=== PATIENT | male | born 1950 | race Caucasian/White ===

== ENCOUNTER 2018-11-02 09:23 | Emergency (ER) | payer MEDICARE, OTHER ==
[~2018-11-02] VITALS: Ht 165.1 cm; Wt 68.2 kg
[2018-11-02] MEDS ORDERED: NITROGLYCERIN 2% 1 GM OINT PKT TD STA (09:25)
[2018-11-02] MEDS ORDERED: ASPIRIN 81 MG TAB PO STA (09:25)
[2018-11-02 09:26] VITALS: Ht 165.1 cm; Wt 68.2 kg
[2018-11-02] MEDS ORDERED: NITROGLYCERIN (SL) 0.4 MG TAB SL PRN ×2 (09:30→11:30)
[2018-11-02] MEDS ORDERED: GLIP5TAB13 PO (10:11)
[2018-11-02] MEDS ORDERED: ASPI81TA52 PO (10:12)
[2018-11-02] MEDS ORDERED: CARV3.1260 PO (10:12)
[2018-11-02] MEDS ORDERED: LISI2.5T59 PO (10:12)
[2018-11-02] MEDS ORDERED: ATOR20TA38 PO (10:12)
[2018-11-02] MEDS ORDERED: APIX5TAB PO (10:13)
[2018-11-02] MEDS ORDERED: METF100010 PO (10:13)
[2018-11-02 11:27] VITALS: BP 114/72; PULSE 79; RESP 16
[2018-11-02] MEDS ORDERED: DOCUSATE SODIUM 100 MG CAP PO SCH (11:30)
[2018-11-02] MEDS ORDERED: morphine 2 MG INJ IV PRN (11:30)
[2018-11-02] MEDS ORDERED: ONDANSETRON 4 MG INJ IV PRN ×2 (11:30)
[2018-11-02] MEDS ORDERED: ACETAMINOPHEN 325 MG TAB PO PRN ×2 (11:30)
[2018-11-02] MEDS ORDERED: LORAZEPAM 0.5 MG TAB PO PRN (11:30)
[2018-11-02] MEDS ORDERED: GLUCOSE GEL 15 GRAM TUBE PO PRN ×2 (12:00)
[2018-11-02] MEDS ORDERED: DEXTROSE 50% 50 ML SYRINGE IV PRN ×2 (12:00)
[2018-11-02] MEDS ORDERED: GLUCOSE GEL 15 GRAM TUBE BUCCAL PRN (12:00)
[2018-11-02] MEDS ORDERED: INSULIN ASPART [NOVOLOG] 3 ML PEN SC SCH ×2 (12:00)
[2018-11-02] MEDS ORDERED: GLUCAGON 1 MG INJ IM PRN (12:00)
--- NOTE | 2018-11-02 12:07 | ERD ---
ER Documentation Chief Complaint Chief Complaint SUDDEN ONSET SOB. BIB R39 HPI Patient is a 67-year-old male with coronary disease and diabetes who presents with shortness of breath. The patient was brought in by ambulance. The patient had sudden onset of shortness of breath. He was pale and could not speak because of shortness of breath. He is on CPAP with albuterol by paramedics. He denies chest pain. He had a cough recently but no fevers. Upon review of old medical records this is the patient's first visit to the emergency department. He does have a primary doctor. ROS All systems reviewed and are negative except as per history of present illness. Medications Home Meds Reported Medications Apixaban* (Eliquis*) 5 Mg Tablet, 5 MG PO BID, TAB 11/02/18 Metformin Hcl* (Metformin Hcl*) 1,000 Mg Tablet, 1000 MG PO WITH BREAKFAST DINNE, #60 TAB 11/02/18 Atorvastatin Calcium* (Atorvastatin Calcium*) 20 Mg Tablet, 20 MG PO QHS, #30 TAB 11/02/18 Carvedilol* (Carvedilol*) 3.125 Mg Tablet, 3.125 MG PO BID, #60 TAB 11/02/18 Lisinopril* (Lisinopril*) 2.5 Mg Tablet, 2.5 MG PO DAILY, #30 TAB 11/02/18 Aspirin (Low Dose Aspirin) 81 Mg Tablet.dr, 81 MG PO DAILY, #30 TAB 11/02/18 Glipizide* (Glipizide*) 5 Mg Tablet, 5 MG PO AC BREAKFAST DINNER, TAB 11/02/18 Allergies Allergies: Coded Allergies: No Known Allergy (Unverified , 11/02/18) PMhx/Soc Medical and Surgical Hx: pt denies Medical Hx Smoking Status: Former smoker FmHx Family History: coronary disease Physical Exam Vitals Vital Signs Date Temp Pulse Resp B/P (MAP) Pulse Ox O2 O2 Flow FiO2 Time Delivery Rate 11/02/18 Nasal 2 11:31 Cannula 11/02/18 79 16 114/72 99 Nasal 11:27 (86) Cannula 11/02/18 94 100 100 09:29 11/02/18 98.1 97 24 145/85 98 09:26 (105) Physical Exam Const: Moderate distress Head: Atraumatic Eyes: Normal Conjunctiva ENT: Normal External Ears, Nose and Mouth. Neck: Full range of motion. No meningismus. Resp: Decreased breath sounds bilaterally Cardio: Regular rate and rhythm, no murmurs Abd: Soft, non tender, non distended. Normal bowel sounds Skin: No petechiae or rashes Back: No midline or flank tenderness Ext: No cyanosis, or edema Neur: Awake and alert Psych: Normal Mood and Affect Result Diagram: 11/02/1837 11/02/1837 Results 24 hrs Laboratory Tests Test 11/02/18 09:25 11/02/18 09:37 Blood Gas Specimen Source Blood arterial Arterial Blood Date Drawn 11/02/2018 9:26:41 AM Arterial Blood pH (Temp corrected) 7.336 Arterial Blood pCO2 (Temp correct) 45.4 mmhg Arterial Blood pO2 (Temp corrected) 410.1 mmHG Arterial Blood HCO3 23.7 mmol/L Arterial Blood Base Excess -2.3 mmol/L Arterial Blood Oxygen Saturation 99.5 mmHG Terrell Test ACCEPTAB Arterial Blood Gas Puncture Site Right Radial Arterial Blood Carboxyhemoglobin 0.8 % Arterial Blood Methemoglobin 0.4 % Blood Gas A-a O2 Differential 257.5 mmHg Oxyhemoglobin Percent 98.3 % Blood Gas Temperature 37.0 C Blood Gas Respiration Rate 14.0 Blood Gas Actual Respiration Rate 30 Blood Gas Modality MASK - BIPAP FiO2 100.0 % Blood Gas Tidal Volume 626.0 mL Blood Gas Pressure Support 10 Blood Gas Notified Whom LITA RT Blood Gas Notified Time 11/02/2018 9:42:36 AM White Blood Count 6.7 10^3/ul Red Blood Count 4.38 10^6/ul Hemoglobin 13.4 g/dl Hematocrit 40.4 % Mean Corpuscular Volume 92.2 fl Mean Corpuscular Hemoglobin 30.6 pg Mean Corpuscular Hemoglobin Concent 33.2 g/dl Red Cell Distribution Width 13.3 % Platelet Count 182 10^3/UL Mean Platelet Volume 10.7 fl Immature Granulocytes % 1.100 % Neutrophils % 63.4 % Lymphocytes % 27.5 % Monocytes % 5.7 % Eosinophils % 1.5 % Basophils % 0.8 % Nucleated Red Blood Cells % 0.0 /100WBC Immature Granulocytes # 0.070 10^3/ul Neutrophils # 4.2 10^3/ul Lymphocytes # 1.8 10^3/ul Monocytes # 0.4 10^3/ul Eosinophils # 0.1 10^3/ul Basophils # 0.1 10^3/ul Nucleated Red Blood Cells # 0.0 10^3/ul Sodium Level 143 mmol/L Potassium Level 4.2 mmol/L Chloride Level 105 mmol/L Carbon Dioxide Level 26 mmol/L Anion Gap 12 Blood Urea Nitrogen 17 mg/dl Creatinine 0.91 mg/dl Est Glomerular Filtrat Rate mL/min > 60 mL/min Glucose Level 263 mg/dl Calcium Level 8.7 mg/dl Troponin I 0.019 ng/ml Current Medications Medications Dose Sig/Eddie Start Time Status Last (Trade) Ordered Route PRN Stop Time Admin Dose Reason Admin Aspirin 162 mg ONCE STAT 11/02/18 DC 11/02/18 (Aspirin) PO 09:25 09:34 11/02/18 09:27 1 inch ONCE STAT 11/02/18 DC 11/02/18 Nitroglycerin TD 09:25 09:33 11/02/18 (Nitroglyceri 09:27 n 2% Oint) 1 tab Q5M UP TO 3 11/02/18 DC 11/02/18 Nitroglycerin DOSES PRN 09:30 09:34 SL CHEST 11/02/18 (Nitroglyceri PAIN 11:44 n (Sl Tab) 0.4 Mg) Ondansetron 4 mg ER BRIDGE 11/02/18 DC HCl (Zofran PRN IV 11:30 Inj) NAUSEA AND/OR 11/02/18 VOMITING 11:40 650 mg ER BRIDGE 11/02/18 DC Acetaminophen PRN PO MILD 11:30 (Tylenol PAIN(1-3)OR 11/02/18 Tab) ELEVATED TEMP 11:43 Lorazepam 0.5 mg Q8H PRN 11/02/18 (Ativan) PO ANXIETY 11:30 Ondansetron 4 mg Q6H PRN 11/02/18 HCl (Zofran IV NAUSEA 11:30 Inj) AND/OR VOMITING Furosemide 40 mg BID 11/02/18 (Lasix) DIURETICS 18:00 IV 1 tab Q5M PRN 11/02/18 Nitroglycerin SL CHEST 11:30 PAIN (Nitroglyceri n (Sl Tab) 0.4 Mg) 650 mg Q6H PRN 11/02/18 Acetaminophen PO PAIN 11:30 (Tylenol LEVEL 1-3 OR Tab) FEVER Morphine 2 mg Q4H PRN 11/02/18 Sulfate IV PAIN 11:30 (morphine) LEVEL 7-10 Docusate 100 mg Q12H PO 11/02/18 Sodium 11:30 (Colace) Famotidine 20 mg Q12 PO 11/02/18 (Pepcid) 21:00 Apixaban 5 mg BID PO 11/02/18 (Eliquis) 21:00 Aspirin 81 mg DAILY PO 11/03/18 (Halfprin) 09:00 20 mg QHS PO 11/02/18 Atorvastatin 21:00 Calcium (Lipitor) Carvedilol 3.125 mg BID PO 11/02/18 (Coreg) 21:00 Lisinopril 2.5 mg DAILY PO 11/03/18 (Zestril) 09:00 Discontinue ONCE ONCE 11/02/18 DC Miscellaneous current oral XX 11:30 sulfonylur... 11/02/18 Information 11:40 (* Miscellaneous Pharmacy Order) Diagnostic 1 ea 02 XX 11/03/18 Test (Pha) 02:00 (Accu-Chek) Insulin 14 units DAILY@199911/02/18 Glargine SC 20:00 (Lantus) Insulin 5 unit WITH MEALS 11/02/18 Aspart SC 12:00 (Novolog Insulin Pen) ONCE ONCE 11/02/18 DC Miscellaneous HYPOGLYCEMIA XX 11:30 PROTOCOL 11/02/18 Information w... 11:40 (* Miscellaneous Pharmacy Order) Insulin NOVOLOG WITH MEALS 11/02/18 Aspart *MILD* BEDTIME SC 12:00 (Novolog ALGORITHM Insulin Pen) Discontinue ONCE ONCE 11/02/18 DC Miscellaneous all previ... XX 11:30 11/02/18 Information 11:40 (* Miscellaneous Pharmacy Order) 1 ea NOTE XX 11/02/18 Miscellaneous 12:00 Information Glucose 15 gm Q15M PRN 11/02/18 (Glutose) PO DECREASED 12:00 GLUCOSE Glucose 22.5 gm Q15M PRN 11/02/18 (Glutose) PO DECREASED 12:00 GLUCOSE Dextrose 25 ml Q15M PRN 11/02/18 (D50w IV DECREASED 12:00 Syringe) GLUCOSE Dextrose 50 ml Q15M PRN 11/02/18 (D50w IV DECREASED 12:00 Syringe) GLUCOSE Glucagon 1 mg Q15M PRN 11/02/18 (Glucagen) IM DECREASED 12:00 GLUCOSE Glucose 15 gm Q15M PRN 11/02/18 (Glutose) BUCCAL 12:00 DECREASED GLUCOSE Procedures/MDM EKG read by me: Rate/Rhythm: Regular rate and rhythm at a normal rate Intervals: Normal Impression: No evidence of ischemia or arrhythmia X-ray read by radiology. Patient is a 67-year-old male who presents with acute respiratory failure. He required BiPAP therapy. He was given aspirin, nitroglycerin and will be admitted to the care of Dr. Grande from the panel team to a telemetry bed. After approximately 2 hours he was able to be weaned off the BiPAP. His initial troponin is within normal limits but I was concerned for potential acute coronary syndrome. I doubt pneumonia, pneumothorax, pulmonary embolism, or aortic dissection. Departure Diagnosis: Primary Impression: Respiratory failure Chronicity: acute Respiratory failure complication: unspecified whether with hypoxia or hypercapnia Qualified Codes: J96.00 - Acute respiratory failure, unspecified whether with hypoxia or hypercapnia Additional Impressions: Shortness of breath Pulmonary edema Chronicity: acute Qualified Codes: J81.0 - Acute pulmonary edema Condition: Serious SOHAN LIZAMA MD Nov 02, 2018 12:07
--- NOTE | 2018-11-02 16:17 | HP ---
DATE OF ADMISSION: 11/02/2018 PRESENTING COMPLAINT: Shortness of breath. HISTORY OF PRESENTING COMPLAINT: A 67-year-old male with past medical history of hypertension, diabe [place] and history of infarction. The patient is not sure when, but per chart records was about 2008, socorro tyson presents to the Emergency Room today with shortness of breath. The patient was driving when he al l of a sudden noticed he could not breathe and despite calming down and tried to take deep breaths, rosa mcintyre did not feel better, so he decided to call the ambulance who brought him to the Emergency Room. Be fore he came in here, he had been given albuterol and was on CPAP. In the Emergency Room, he had to be transitioned to BiPAP therapy. He states that all of yesterday he was beginning to feel ill with dyspnea on exertion. No real chest pain, but he did have some chest discomfort, no fever, no cough, no abdominal pain, no extremity swelling. He denies PND or orthopnea. He does not have a history of congestive heart failure. He denies abdominal pain, melenic stools, blood in his stools, dysuria or hematuria. PAST MEDICAL HISTORY: 1. Hypertension. 2. Diabetes. 3. History of CA in the past. Therefore, patient is also on anticoagulation therapy suggestive of p ossible arrhythmia. PAST SURGICAL HISTORY: Patient denies. ALLERGIES: No known drug allergies. SOCIAL HISTORY: Remote tobacco user for many years, quit a month ago. Occasional alcohol use, denie s illicit drug use. FAMILY HISTORY: Positive for heart disease. REVIEW OF SYSTEMS: Per HPI. PHYSICAL EXAMINATION VITAL SIGNS: Temperature 98.1, pulse 79, respirations 16, blood pressure 114/70, saturations 99% on oxygen via nasal cannula at 2 liters a minute. Of note is that the patient required noninvasive posi tive pressure ventilation upon arrival, but this has been weaned off. GENERAL: The patient is alert, oriented, in no distress, able to participate in history taking. HEENT: Head is normocephalic. Pupils are equal and reactive. Mucous membranes are moist. Posterio r pharynx clear of erythema or exudate. NECK: Supple. CHEST: Clear but diminished, but did not really appreciate crackles but he does have diminished ruth ann th sounds. CARDIOVASCULAR: S1, S2, no added sounds or murmurs. Regular rate and rhythm at this time. ABDOMEN: Soft, nontender, nondistended. SKIN: No rash or jaundice. NEUROLOGIC: No gross focal deficits. PSYCHIATRIC: Calm, cooperative with exam. LABORATORY VALUES: White count is normal, hemoglobin 13, platelets were normal. His basic metabolic panel is normal for hyperglycemia at 263. Liver profile was not done. EKG showed normal sinus rhyt hm with normal rate. ABG showed pH of 7.3, pCO2 of 45, pO2 of 410 that was done while on BiPAP. IMAGING: Chest x-ray showed diffuse interstitial pulmonary disease, cardiomegaly, and atherosclerosi s. Small right pleural effusion. ASSESSMENT: 1. Acute shortness of breath requiring short course of noninvasive positive pressure ventilation, so mewhat improved. The patient is to be admitted for further workup. 2. Causes could be secondary to interstitial lung disease, rule out congestive heart failure of new onset. 3. Carotid bruit. 4. Diabetes mellitus type 2 with suboptimal home control. Resume home hypoglycemics and for o ptimization, also get hemoglobin A1c. 5. Hypertension. Resume home meds. 6. Chest pressure, rule out acute coronary syndrome, rule out congestive heart failure. 7. This is likely secondary to arrhythmia, patient is not quite sure why he is on this medication. We will try to obtain records. In the meantime, continue home Eliquis As mentioned, earlier further interventions will depend on clinical course. PLAN OF CARE: Has been discussed in detail with patient, questions have been answered. The patient will also be maintained on gentle diuresis. Evaluation time has been more than 1 hour. Of note is that the patient stated that he did not realiz e he was going to be admitted to the hospital and does not seem too excited about this. I have advis ed him that it is in his best interest to stay, so that we can figure out what exactly happened. The patient will need to sign out against medical advice despite knowing the risks of leaving, including . Dictated By: ALBERT EUGENE MD, BA/NTS Conf#: [id number] DID#: [id number]
--- NOTE | 2018-11-02 16:26 | DS ---
DATE OF ADMISSION: 11/02/2018 DATE OF DISCHARGE: 11/02/2018 ADDENDUM: I was notified by the nursing staff that the patient left against medical advice after my a ssessment. Hence, no discharge instructions or prescriptions were given. Dictated By: ALBERT EUGENE MD BA/NTS Conf#: [id number] DID#: [id number] CC: CARY MOYER MD; SOHAN LIZAMA MD;*EndCC*
[2018-11-02] MEDS ORDERED: FUROSEMIDE 40 MG INJ IV SCH ×2 (18:00)
[2018-11-02] MEDS ORDERED: INSULIN GLARGINE [LANTus] (100 UNITS/ML) SYG SC SCH (20:00)
[2018-11-02] MEDS ORDERED: APIXABAN 5 MG TABLET PO SCH (21:00)
[2018-11-02] MEDS ORDERED: ATORVASTATIN 20 MG TAB PO SCH (21:00)
[2018-11-02] MEDS ORDERED: FAMOTIDINE 20 MG TAB PO SCH (21:00)
[2018-11-03] MEDS ORDERED: ACCU-CHEK XX SCH (02:00)
[2018-11-03] MEDS ORDERED: LISINOPRIL 5 MG TAB PO SCH (09:00)
[2018-11-03] MEDS ORDERED: ASPIRIN (EC) 81 MG TAB PO SCH (09:00)
== END 2018-11-02 13:10 | disposition left against medical advice (07) ==
LOC: E/R 09:23 → CANBEDREQ 19:38
DX: J96.00 Acute respiratory failure, unspecified whether with hypoxia or hypercapnia (principal); R40.2142 Coma scale, eyes open, spontaneous, at arrival to emergency department; R40.2362 Coma scale, best motor response, obeys commands, at arrival to emergency department; R40.2252 Coma scale, best verbal response, oriented, at arrival to emergency department; J81.0 Acute pulmonary edema; Z87.891 Personal history of nicotine dependence; Z79.82 Long term (current) use of aspirin; Z79.01 Long term (current) use of anticoagulants; Z79.84 Long term (current) use of oral hypoglycemic drugs
CPT/HCPCS: 36415; 36600; 71045; 80048; 82803; 83880; 84484; 85025; 93005; 94660; 99285; J1815